=== PATIENT | female | born 1980 | race Caucasian/White ===

== ENCOUNTER 2017-05-03 05:30 | Inpatient (IN) | payer BC, SELFPAY ==
[2017-05-03] MEDS: Lactated Ringers 1,000 ML 50 ML IV ×3 (06:00→11:23)
[2017-05-03 06:07] VITALS: BMI 30.7
[2017-05-03 06:31] LABS: Hematocrit 35.6 % (37-47); Mean Corp Hgb Conc 33.7 g/gl (32-36); Mean Corpuscular Hgb 31.1 pg (27.0-32.0); Mean Corpuscular Volume 92.2 fL (81-99); Mean Platelet Vol. 11.2 fl (6.2-12.0); Platelet Count 179 K/mm3 (150-450); RBC Distribution Width CV 14.9 % (11.6-14.6); RBC Distribution Width SD 48.8 fl (35.1-43.9); Red Blood Count 3.86 M/mm3 (4.2-5.4); White Blood Count 5.4 K/mm3 (4.4-11.0)
[2017-05-03 06:33] LABS: Scan Indicated on CBC? Y/N NO
--- NOTE | 2017-05-03 14:30 | PCM.OB.VAG ---
Vaginal Delivery Maternal Presentation: Active Labor Amniotic Membrane Rupture Type: Artificial Amniotic Fluid Description: Clear Final AUGUSTINE: 05/09/17 Final AUGUSTINE Source: US <20 weeks Gestational age: 39 Weeks and 1 Days Date of Procedure: 05/03/17 Pre-Operative Diagnosis: labor Post-Operative Diagnosis: same Surgery/ Procedure Performed: Spontaneous Vaginal Delivery Type of Anesthesia: Epidural Description of Procedure: A vigorous [female] was delivered [TESS] over intact perineum. The remainder the was delivered with maternal pushing and gentle traction only in less than 15 seconds. The Pitocin infusion was initiated for active management of the third stage. The cord was clamped and cut [after 1 minute]. The was attended to by the waiting nursing staff. The placenta was delivered spontaneously and intact. The cervix and vagina were intact. Sponge and needle counts were correct. A vaginal sweep was completed by me. Presentation: TESS Placental Delivery Description: Spontaneous Placenta Disposition: [facility] Cord Vessel Description: 3 Vessels Cord Entanglement: None Drain: Dickson to straight drain Estimated Blood Loss: 200 Infant A gender: Female (1 minute): 8 (5 minute): 9 Episiotomy Description: None Laceration: None Medications given after delivery: IV Pitocin Complications: None
[2017-05-03] MEDS: Oxytocin 30 units/NS 500 ml 30 UNITS/500 ML IV.SOLN 167 UNITS IV (14:42)
[2017-05-03] MEDS: Oxytocin 30 units/NS 500 ml 30 UNITS/500 ML IV.SOLN 334 UNITS IV (15:49)
[2017-05-03] MEDS: 0.9% Saline Lock 10 ML Syringe IV (16:21)
[2017-05-03 17:10] VITALS: BP 115/60; PULSE 100; RESP 18; TEMP 38; O2SAT 98
[2017-05-03 17:15] VITALS: TEMP 37.9
[2017-05-03 19:48] VITALS: BP 111/69; PULSE 84; RESP 18; TEMP 37.2
[2017-05-04] VITALS (9 sets, daily range): BP systolic 102–113; BP diastolic 46–67; PULSE 55–85; RESP 14–18; TEMP 36.3–36.9; O2SAT 95–99
[2017-05-04] MEDS: Naproxen 250 MG Tablet PO ×3 (00:57→20:26)
[2017-05-04] MEDS: Acetaminophen 500 MG Tablet 1000 MG PO (07:39)
[2017-05-04] MEDS: Senna/Docusate Sodium 1 Tablet PO (10:54)
--- NOTE | 2017-05-04 12:57 | PCM.PN.OB ---
Subjective: Doing well per patient and nursing staff. Ambulating and taking PO without difficulty. Voiding and passing flatus. without difficulty. Taking Tylenol and Naproxen for pain, effective. Denies headache, visual changes, chest pain, shortness of breath, leg pain. Planning for discharge tomorrow. - Physical Exam General: Alert, Oriented x3, Cooperative Lungs: Normal air movement, No rhonchi - right side of chest. Cardiovascular: Regular rate, Regular Rhythm, No murmurs Abdomen: Bowel Sounds Present, Soft, Non Tender, - - Fundus firm 2 below U Extremities: No edema, - - Reddy's negative Psych/Mental Status: Normal Affect, Appropriate Vital Signs Temp Pulse Resp BP Pulse Ox 97.4 F L 63 16 102/56 L 96 05/04/17 09:59 05/04/17 09:59 05/04/17 09:59 05/04/17 09:59 05/04/17 09:59 Oxygen Delivery Method Room Air Weight: 196 lb Body Mass Index (BMI) 30.7 Intake and Output for Last 24 Hours 05/02/17 05/03/17 05/04/17 23:59 23:59 23:59 Intake Total 3679 / 3679 Output Total 1400 / 1400 Balance 2279 / 2279 Laboratory Tests Past 24 Hrs 05/03/17 16:05 Screen NEGATIVE Baby's Blood Type AB POSITIVE Baby's BENEDICT NEGATIVE Assessment/Plan A:PPD#1 P: 1) Routine PP care 2) Planning for D/C home tomorrow
--- NOTE | 2017-05-04 13:02 | PN.OBGYN_ITS ---
Subjective: Doing well per patient and nursing staff. Ambulating and taking PO without difficulty. Voiding and passing flatus. without difficulty. Taking Tylenol and Naproxen for pain, effective. Denies headache, visual changes , chest pain, shortness of breath, leg pain. Planning for discharge tomorrow. - Physical Exam General: Alert, Oriented x3, Cooperative Lungs: Normal air movement, No rhonchi - right side of chest. Cardiovascular: Regular rate, Regular Rhythm, No murmurs Abdomen: Bowel Sounds Present, Soft, Non Tender, - - Fundus firm 2 below U Extremities: No edema, - - Reddy's negative Psych/Mental Status: Normal Affect, Appropriate Vital Signs Temp Pulse Resp BP Pulse Ox 97.4 F L 63 16 102/56 L 96 05/04/17 09:59 05/04/17 09:59 05/04/17 09:59 05/04/17 09:59 05/04/17 09:59 Oxygen Delivery Method Room Air Weight: 196 lb Body Mass Index (BMI) 30.7 Intake and Output for Last 24 Hours 05/02/17 05/03/17 05/04/17 23:59 23:59 23:59 Intake Total 3679 / 3679 Output Total 1400 / 1400 Balance 2279 / 2279 Laboratory Tests Past 24 Hrs 05/03/17 16:05 Screen NEGATIVE Baby's Blood Type AB POSITIVE Baby's BENEDICT NEGATIVE Assessment/Plan A:PPD#1 P: 1) Routine PP care 2) Planning for D/C home tomorrow
[2017-05-04] MEDS: guaiFENesin Dm 10 ML UDC PO ×2 (16:37→22:33)
[2017-05-04] MEDS: Albuterol 2.5 MG/3 ML VIAL.NEB. INHALATION ×2 (16:41→19:54)
[2017-05-05 02:00] VITALS: PULSE 80; RESP 17
[2017-05-05] MEDS: guaiFENesin Dm 10 ML UDC PO (05:48)
[2017-05-05 05:54] VITALS: PULSE 83; RESP 20
[2017-05-05] MEDS: Albuterol 2.5 MG/3 ML VIAL.NEB. INHALATION (05:54)
[2017-05-05 08:00] VITALS: BP 110/60; PULSE 76; RESP 16; TEMP 36.7
[2017-05-05] MEDS: Naproxen 250 MG Tablet PO (08:02)
--- NOTE | 2017-05-05 08:46 | PCM.PN.OB ---
Subjective: pain well controlled, average lochia. C/o cough. No fever. infant . - Physical Exam General: Alert, Cooperative, No apparent distress Abdomen: Soft, Non-Distended, Tender - appropriately Vital Signs Temp Pulse Resp BP Pulse Ox 98.0 F 76 16 110/60 95 05/05/17 08:00 05/05/17 08:00 05/05/17 08:00 05/05/17 08:00 05/04/17 20:00 Oxygen Delivery Method Room Air Weight: 88.904 kg Body Mass Index (BMI) 30.7 Intake and Output for Last 24 Hours 05/03/17 05/04/17 05/05/17 23:59 23:59 23:59 Intake Total 3679 / 3679 Output Total 1400 / 1400 Balance 2279 / 2279 Assessment/Plan PPD#1 cough/URI, will get CXR to r/o pneumonia. If that is neg. will d/c home and cont. w/ tessalon perrles, cough syrup and albuterol inhaler prn. call us or PCP if acutely worsens. Has been ill > 48 hrs so will not do influenza test at t his time as would not change current treatment plan infant and doing well
--- NOTE | 2017-05-05 08:54 | DCINST_ITS ---
Discharge Diet: No Restrictions Discharge Activity: Return to Normal Activity, May not drive while taking narcotic pain medications., May Shower May resume sexual activity in: 4-6 weeks Additional Activity Instructions:: Nothing in the vagina for 4-6 weeks. You may return to work/school in 6 weeks. Call your doctor if your incision/area has: Continuous Slow Oozing, Sudden Increased Bleeding, Increased Pain/ Swelling, Increased Redness, Foul Smelling Discharge Additional Instructions: If you experience any of the following, contact your healthcare provider. * Bleeding that soaks a pad every hour for 2 hours * Fever 100.4 or higher * Unrelieved incision or abdominal pain * Swelling, redness, discharge or bleeding from your incision or episiotomy site * Your incision begins to separate * Problems urinating (including inability to urinate or burning while urinating) . * Visual changes * Severe headache * Flu-like symptoms * Pain or redness in one of both of your breasts * Pain, warmth, tenderness or swelling in your legs, especially the calf area * Frequent nausea and vomiting * Symptoms of depression or anxiety If you experience any of the following, call 911 or go to the nearest Emergency Room. * Chest pain * Problems breathing * Seizure activity * Partial or complete paralysis of a body part, slurred speech, weakness or drooping of the face, or a sudden inability to walk or hold your balance Allergies/Adverse Reactions: Allergies tioconazole [From Monistat 1 (tioconazole)] Allergy (Verified 05/03/17 06:08) Swelling Medications to take at Discharge Vitamins 1 tab PO DAILY 05/03/17 Hydrocodone/Pseudoephed/Guaif [Hycofenix 2.5-30-200 mg/5 ml] 10 ml PO Q6H PRN PRN 7 Days #300 solution 05/05/17 The following prescriptions were given: Hydrocodone/Pseudoephed/Guaif [Hycofenix 2.5-30-200 mg/5 ml] 10 ml PO Q6H PRN PRN 7 Days #300 solution PRN Reason: Cough Please Follow Up With: Vonda Iqbal MD - [phone] When: Call to make an appointment with your doctor in 6 weeks. If you had elevated Blood Pressure or 4th degree laceration you will need to be seen in 2 weeks. Primary Care Physician: Renuka Aragon MD [Primary Care Provider] -
--- NOTE | 2017-05-05 09:00 | PCM.HP.OB ---
History Date of Admission: 05/05/17 Final AUGUSTINE: 05/09/17 Final AUGUSTINE Source: US <20 weeks Gestational age: 39 Weeks and 3 Days History of this : 37 YOF presents in labor at 39 weeks w/ EDC 05/09/17. Active contractions. No VB/LOF. Pertinent Past Medical History: CIS of cervix anxiety h/o miscarriage h/o infertility h/o cone biopsy D&E Allergies tioconazole [From Monistat 1 (tioconazole)] Allergy (Verified 05/03/17 06:08) Swelling Current Medications Acetaminophen (Tylenol) 1,000 mg PO Q8H PRN PRN PRN Reason: MILD PAIN (1-3)/Temp>99.6F Last Admin: 05/04/17 07:39 Dose: 1,000 mg Albuterol Sulfate (Ventolin Aerosols) 2.5 mg INHALATION Q4H PRN PRN PRN Reason: WHEEZING Last Admin: 05/05/17 05:54 Dose: 2.5 mg Bisacodyl (Dulcolax) 10 mg RECTAL UD PRN PRN Reason: If no BM Dibucaine (Dibucaine) 1 applic TOPICAL TID PRN PRN; Protocol PRN Reason: Discomfort Guaifenesin (Robitussin Dm) 10 ml PO Q6H PRN PRN PRN Reason: COUGH Last Admin: 05/05/17 05:48 Dose: 10 ml Hydrocortisone (Hytone) 1 applic TOPICAL TID PRN PRN; Protocol PRN Reason: Discomfort Lactated Ringer's () 1,000 mls @ 15 mls/hr IV .Q48H STEVE PRN Reason: KVO Last Admin: 05/03/17 18:12 Dose: Not Given Methylergonovine Maleate (Methergine) 0.2 mg IM X1 PRN PRN Reason: Excess bleeding/uterine atony Naproxen (Naprosyn) 250 - 500 mg PO Q8H PRN PRN PRN Reason: MILD PAIN (1-310) Last Admin: 05/05/17 08:02 Dose: 500 mg Ondansetron HCl (Zofran) 4 mg IV Q4H PRN PRN PRN Reason: Nausea Promethazine HCl (Phenergan (Ll)) 12.5 mg IV Q4H PRN PRN PRN Reason: NAUSEA/VOMITING Senna/Docusate Sodium (Senokot-S, Dede-Colace) 1 - 2 tablet PO DAILY PRN PRN PRN Reason: Constipation Last Admin: 05/04/17 10:54 Dose: 1 tablet Simethicone (Mylicon) 80 mg PO PCHS PRN PRN Reason: Indigestion/Stomach pain Sodium Chloride () 5 - 15 ml IV UD PRN PRN Reason: SALINE FLUSH Last Admin: 05/03/17 16:21 Dose: 10 ml Alcohol: None Drug Use: none Number of Fetus(es): 1 Review of Systems Constitutional: Denies: Chills, Fever Cardiovascular: Denies: Chest Pain Respiratory: Reports: Cough Physical Exam Vitals: Vital Signs Temp Pulse Resp BP Pulse Ox 98.0 F 76 16 110/60 95 05/05/17 08:00 05/05/17 08:00 05/05/17 08:00 05/05/17 08:00 05/04/17 20:00 General: Alert, No apparent distress - uncomfortable w/ ctxs Abdomen: Soft, Gravid, Appropriate for Gestational Age Extremities:: Other - edema1+ Estimated gestational size: Appropriate for gestational size Presentation: Cephalic Assessment/Plan 37 YOF in labor EFW < 4500 gm and pelvic clinically adequate to expect vaginal delivery epidural if desires
--- NOTE | 2017-05-05 11:45 | RAD_ITS ---
STUDY: X-RAY CHEST REASON FOR EXAM: Female, 37 years old. Cough. TECHNIQUE: PA and lateral views of the chest. COMPARISON: None. FINDINGS: Pectus excavatum deformity. The lungs are clear and expanded. There is no demonstrated pleural abnormality. Normal size heart. Normal mediastinum and sidney. Normal visualized pulmonary arteries. Normal visualized aortic arch and descending thoracic aorta. Normal visualized thoracic spine. Normal visualized ribs, clavicles, and shoulders. There is no demonstrated abnormality of the visualized soft tissue structures of the upper abdomen. RAD/Chest PA and Lateral IMPRESSION: Normal x-ray examination of the chest. Pectus excavatum deformity. Electronically Signed: Chris Walker MD at 11:59 EST Tel [phone], Service support ,
[2017-05-05 15:30] VITALS: BP 115/51; PULSE 94; RESP 16; TEMP 36.8
== END 2017-05-05 15:30 | disposition home or self-care (01) | DRG 774 ==
PROVIDERS: Admitting Provider Obstetrics & Gynecology; Family Provider Internal Medicine; PCP Internal Medicine; Visit Provider Obstetrics & Gynecology
DX: O86.89 Other specified puerperal infections (principal); J06.9 Acute upper respiratory infection, unspecified; Z3A.39 39 weeks gestation of pregnancy
CPT/HCPCS: 59025; 59050; 71046; 85027; 85461; 86850; 86900; 90384; 94640; 99218; J7120; A4216; G0378; J2790